=== PATIENT | male | born 1950 | race Caucasian/White ===

== ENCOUNTER → 2018-01-29 14:35 | Outpatient (CLI) | payer MEDICARE, BC, SELFPAY ==
[2018-01-29 16:15] LABS: Prostate Specific Antigen Scrn 1.09 ng/mL (0.1-4.0)
== END ==
PROVIDERS: PCP Family Medicine; Visit Provider Family Medicine
DX: Z12.5 Encounter for screening for malignant neoplasm of prostate (principal)
CPT/HCPCS: 36415; G0103

== ENCOUNTER → 2018-05-15 10:51 | Outpatient (CLI) | payer MEDICARE, BC, SELFPAY ==
[2018-05-15 12:20] LABS: Alanine Aminotransferase 51 IU/L (21-72); Albumin 4.6 g/dL (3.5-5.0); Albumin Globulin Ratio 1.8 (1.0-2.8); Alkaline Phosphatase 82 U/L (38-126); Aspartate Aminotransferase 38 IU/L (17-59); BUN Creatinine Ratio 15.6 (6-22); Bilirubin Total 3.6 mg/dL (0.2-1.3); Blood Urea Nitrogen 14 mg/dL (9-20); Calcium 9.3 mg/dL (8.4-10.2); Carbon Dioxide 33 mmol/L (22-32); Chloride 100 mmol/L (98-107); Estimated Glomerular Filt Rate > 60.0 mL/min (>60); Globulin 2.6 g/dL (1.7-4.1); Glucose 91 mg/dL (80-110); HEMOLYSIS < 15 (0-50); Sodium 143 mmol/L (137-145); Total Protein 7.2 g/dL (6.3-8.2)
[2018-05-20 10:08] LABS: Lipoprofile NMR SEE SEPERATE REPORT
== END ==
PROVIDERS: PCP Family Medicine; Visit Provider Specialist
DX: E78.2 Mixed hyperlipidemia (principal)
CPT/HCPCS: 36415; 80053; 83704

== ENCOUNTER → 2018-12-04 07:30 | Outpatient (CLI) | payer MEDICARE, BC, SELFPAY ==
[2018-12-04 09:25] LABS: Alanine Aminotransferase 48 IU/L (21-72); Albumin 4.4 g/dL (3.5-5.0); Albumin Globulin Ratio 1.9 (1.0-2.8); Alkaline Phosphatase 101 U/L (38-126); Aspartate Aminotransferase 31 IU/L (17-59); BUN Creatinine Ratio 13.3 (6-22); Bilirubin Total 2.9 mg/dL (0.2-1.3); Blood Urea Nitrogen 12 mg/dL (9-20); Calcium 9.4 mg/dL (8.4-10.2); Carbon Dioxide 26 mmol/L (22-32); Chloride 102 mmol/L (98-107); Estimated Glomerular Filt Rate > 60.0 mL/min (>60); Globulin 2.3 g/dL (1.7-4.1); Glucose 85 mg/dL (80-110); HEMOLYSIS < 15 (0-50); Potassium 4.1 mmol/L (3.4-5.1); Sodium 138 mmol/L (137-145); Total Protein 6.7 g/dL (6.3-8.2)
[2018-12-06 14:41] LABS: Lipoprofile NMR SEE SEPARATE REPOERT
== END ==
PROVIDERS: PCP Family Medicine; Visit Provider Specialist
DX: I10 Essential (primary) hypertension (principal); E78.5 Hyperlipidemia, unspecified
CPT/HCPCS: 36415; 80053; 83704

== ENCOUNTER → 2019-02-13 10:01 | Outpatient (CLI) | payer MEDICARE, BC, SELFPAY ==
--- NOTE | 2019-02-13 | DI.US.S_ITS ---
PROCEDURE: US THYROID INDICATIONS: THYROID NODULE TECHNIQUE: Real-time scanning was performed of the thyroid gland, with image documentation. COMPARISON: [facility], US, US CAROTID DOPPLER BI, 02/13/2019, 10:44. Outside Facility, RG, CT SOFT TISSUE NECK WITH CONTRAST, 02/04/2019, 18:27. FINDINGS: Right: Thyroid lobe measures 5.6 x 2.1 x 1.3 cm, and is homogeneous in echotexture. Left: Thyroid lobe measures 5.2 x 1.7 x 1.6 cm, and is homogenous in echotexture. Isthmus: 3.0 mm thick. Nodule number: 1 Location: Right mid Size: 1.3 x 0.8 x 0.6 cm Composition: Polycystic Echogenicity: Anechoic Shape: wider than tall. Margins: Smooth Echogenic foci: Comet tail artifact Total points: 0 ACR TI-RADS category: Benign Nodule number: 2 Location: Right mid lateral Size: 0.8 x 0.5 x 0.4 cm. Composition: Cystic Echogenicity: Anechoic Shape: wider than tall. Margins: Smooth Echogenic foci: Comet tail artifact Total points: 0 ACR TI-RADS category: Benign Nodule number: 3 Location: Right inferior lateral Size: 0.6 x 0.5 x 0.4 cm Composition: Solid Echogenicity: Hypoechoic Shape: wider than tall. Margins: Smooth Echogenic foci: None Total points: 4 ACR TI-RADS category: Moderate Nodule number: 4 Location: Mid isthmus Size: 0.7 x 0.6 x 0.3 cm. Composition: Solid Echogenicity: Hypoechoic Shape: wider than tall. Margins: Smooth Echogenic foci: None Total points: 4 ACR TI-RADS category: Moderately suspicious Nodule number: 5 Location: Left mid isthmus Size: 1.4 x 0.9 x 0.9 cm. Composition: Complex Echogenicity: Mixed echogenicity Shape: wider than tall. Margins: Smooth Echogenic foci: Internal punctate foci. Total points: 6 ACR TI-RADS category: Moderately suspicious IMPRESSION: Bilateral thyroid nodules. Recommend continued followup ultrasound as detailed below. ACR TI-RADS definitions and recommendations: TI-RADS 1 (benign): 0 points. FNA not needed. TI-RADS 2 (not suspicious): 2 points. FNA not needed. TI-RADS 3 (mildly suspicious): 3 points. * FNA if 2.5 cm or larger, follow up if 1.5 cm or larger (at 1, 3, and 5 years). TI-RADS 4 (moderately suspicious): 4-6 points. * FNA if 1.5 cm or larger, follow up if 1 cm or larger (at 1, 2, 3, and 5 years). TI-RADS 5 (highly suspicious): 7 points or more. * FNA if 1 cm or larger, follow up if 0.5 cm or larger (every year for 5 years). Dictated by: Adonis PEACE Interpreted: Marcelle Masterson MD on 02/13/2019 at 14:09 Approved by: Marcelle Masterson M.D. on 02/13/2019 at 14:27
--- NOTE | 2019-02-13 | DI.US.S_ITS ---
PROCEDURE: US CAROTID DOPPLER BI INDICATIONS: PERIPHERAL VASCULAR DISEASE TECHNIQUE: Color and pulse Doppler interrogation was performed of both carotid systems, with image documentation and velocity measurements. COMPARISON: None. FINDINGS: Stenosis calculations are based on SRU (Society of Radiologists in Ultrasound) criteria. Right side: Brachial blood pressure: 133/75 mm Hg. Common carotid artery peak systolic velocity: 85 cm/sec. Internal carotid artery peak systolic velocity: 99 cm/sec. Internal carotid artery end diastolic velocity: 31 cm/sec. External carotid artery peak systolic velocity: 108 cm/sec. ICA/CCA peak systolic ratio: 1.2. Paiz scale imaging description: Heavy scattered plaque. Percent internal carotid artery stenosis: Less than 50%. Vertebral artery: Flow direction is antegrade. Left side: Brachial blood pressure: 131/74 mm Hg. Common carotid artery peak systolic velocity: 120 cm/sec. Internal carotid artery peak systolic velocity: 100 cm/sec. Internal carotid artery end diastolic velocity: 41 cm/sec. External carotid artery peak systolic velocity: 83 cm/sec. ICA/CCA peak systolic ratio: 1.2. Paiz scale imaging description: Heavy scattered plaque. Percent internal carotid artery stenosis: Less than 50%. Vertebral artery: Flow direction is antegrade. IMPRESSION: Less than 50% bilateral internal carotid artery stenosis. Dictated by: Adonis Smith [facility] Interpreted: Marcelle Masterson MD on 02/13/2019 at 14:16 Approved by: Marcelle Masterson M.D. on 02/13/2019 at 14:27
== END ==
PROVIDERS: PCP Family Medicine; Visit Provider Family Medicine
DX: E04.2 Nontoxic multinodular goiter (principal); I65.23 Occlusion and stenosis of bilateral carotid arteries; I73.9 Peripheral vascular disease, unspecified
CPT/HCPCS: 76536; 93880

== ENCOUNTER → 2019-02-17 09:40 | Outpatient (CLI) | payer MEDICARE, BC, SELFPAY ==
--- NOTE | 2019-02-17 09:42 | DI.RAD.S_ITS ---
PROCEDURE: FL BARIUM SWALLOW INDICATIONS: occasional reflux. Laryngospasm episode COMPARISON: None. FINDINGS: Function: There is normal esophageal peristalsis. No elicited gastroesophageal reflux. Morphology: Air-contrast images demonstrate normal mucosal morphology. Single contrast views show no esophageal strictures, extrinsic mass effects, or diverticula. Limited images of the stomach demonstrate normal appearance. IMPRESSION: Normal motility through the esophagus, no evidence of reflux or aspiration. The esophagogastric junction appears competent and normal in morphology. Dictated by: Manuel Peguero M.D. on 02/17/2019 at 11:51 Approved by: Manuel Peguero M.D. on 02/17/2019 at 11:51
== END ==
PROVIDERS: PCP Family Medicine; Visit Provider Specialist
DX: R13.10 Dysphagia, unspecified (principal)
CPT/HCPCS: 74220

== ENCOUNTER 2020-03-27 19:17 | Observation (INO) | payer MEDICARE, OTHER, SELFPAY ==
[2020-03-27] VITALS (7 sets, daily range): BP systolic 149–190; BP diastolic 72–84; PULSE 51–74; RESP 12–23; TEMP 36.1–36.2; O2SAT 93–100; BMI 22.4
--- NOTE | 2020-03-27 19:45 | DI.CT.S_ITS ---
PROCEDURE: CT HEAD/BRAIN WO CON INDICATIONS: stroke symptoms, dizzy only. NOT TPA CANDIDATE TECHNIQUE: Noncontrast 4.5 mm thick angled axial sections acquired from the foramen magnum to the vertex, with coronal and sagittal reformats. For radiation dose reduction, the following was used: automated exposure control, adjustment of mA and/or kV according to patient size. COMPARISON: None. FINDINGS: Image quality: Excellent. CSF spaces: Basal cisterns are patent. No extra-axial fluid collections. The ventricles are symmetric in size and shape. Brain: No intracranial bleeds or masses. There is cerebral volume loss for age, with resultant ventricular and sulcal prominence. There are periventricular and deep white matter chronic small vessel ischemic changes. There is intracranial internal carotid artery atherosclerosis. Skull and face: Calvarium and visualized facial bones appear intact, without suspicious lesions. Sinuses: Visualized sinuses and mastoids are clear. IMPRESSION: No acute intracranial process. Dictated by: Lloyd Syed M.D. on 03/27/2020 at 20:31 Approved by: Lloyd Syed M.D. on 03/27/2020 at 20:33
--- NOTE | 2020-03-27 19:46 | DI.CT.S_ITS ---
PROCEDURE: CT ANGIO HEAD AND NECK INDICATIONS: stroke symptoms TECHNIQUE: Pre-contrast 4.5 mm thick sections acquired from the foramen magnum to the vertex. After the administration of intravenous contrast, 1 mm thick sections acquired from the aortic arch through the [place] of [place]. Post-contrast 4.5 mm thick sections then re-acquired from the foramen magnum to the vertex. 3-dimensional oiuloxf-qrjpgdgyn-amwmdqosbs (MIP) and/or volume rendering reformats were acquired of the central intracranial vasculature and neck separately. COMPARISON: None. FINDINGS: Image quality: Excellent. BRAIN: CSF spaces: Ventricles are normal in size and shape. Basal cisterns are patent. No extra-axial fluid collections. Brain: No midline shift. No intracranial bleeds or masses. Paiz-white matter interface appears intact. Skull and face: Calvarium and facial bones appear intact, without suspicious lesions. Orbits appear normal. Sinuses: Sinuses and mastoids are clear. HEAD CT ANGIOGRAPHY: Anterior circulation: Intracranial internal carotid arteries are normal in size and flow. The flow within the paired anterior cerebral arteries is normal and symmetric. The flow within the middle cerebral arteries is normal and symmetric. The anterior communicating artery is seen. No aneurysms are seen. Posterior circulation: Visualized portions of the vertebral arteries demonstrate normal caliber, and join to form a normal appearing basilar artery. Flow within the posterior cerebral arteries is normal and symmetric. No aneurysms are seen. NECK CT ANGIOGRAPHY: Carotid system: The great vessels demonstrate a conventional anatomy as they arise from the aortic arch. The origins of the common carotid arteries appear patent. The common carotid arteries demonstrate normal caliber and courses. No right ICA stenosis. There is 50% focal stenosis at the proximal left ICA. Bilateral carotid atherosclerosis. Posterior circulation: The origins of the vertebral arteries both appear widely patent. The more superior extracranial portions of both vertebral arteries also demonstrate normal courses and calibers. They join to form a normal appearing basilar artery. Soft tissues: Visualized neck soft tissues demonstrate no suspicious abnormalities. Cervical spondylosis and facet arthropathy.. IMPRESSION: No intracranial focal stenosis or occlusion 50% focal stenosis involving the proximal left ICA. No hemodynamically significant right ICA stenosis. Any quantitative measurements of stenosis were performed using NASCET criteria. Dictated by: Lloyd Syed M.D. on 03/27/2020 at 20:33 Approved by: Lloyd Syed M.D. on 03/27/2020 at 20:39
[2020-03-27 19:58] LABS: Add Manual Diff / Slide Review NO; Basophils Absolute Auto 0 /uL (0-100); Basophils Percent Auto 0.2 % (0-2); Eosinophils Absolute Auto 100 /uL (0-450); Eosinophils Percent Auto 0.7 % (2-4); Hematocrit 45.4 % (41-53); Hemoglobin 15.8 g/dL (13.5-17.5); Lymphocytes Absolute Auto 1400 /uL (1100-4500); Lymphocytes Percent Auto 13.5 % (25-40); Mean Corpuscular HGB Conc 34.8 % (30-36); Mean Corpuscular Hemoglobin 32.4 PG (26-34); Mean Corpuscular Volume 93.3 fL (80-100); Monocytes Absolute Auto 800 /uL (0-900); Monocytes Percent Auto 7.6 % (3-14); Neutrophils Absolute Auto 7800 /uL (1500-7000); Platelet Count 233 X10^3/uL (150-400); Red Blood Cell Count 4.86 X10^6/uL (4.5-5.9); Red Cell Distribution Width 13.2 % (11.6-14.8); White Blood Cell Count 10.1 X10^3/uL (4.5-11.0)
--- NOTE | 2020-03-27 20:01 | ED.NEUROSD ---
HPI - Neuro Symptoms/Deficit General Chief Complaint: Neuro Symptoms/Deficit Stated Complaint: Vertigo/Dizzy/Leg Weakness/High BP Time Seen by Provider: 03/27/20 19:25 Source: patient Mode of arrival: Wheelchair Limitations: no limitations History of Present Illness HPI Narrative: 70-year-old male nonsmoker with history of hyperlipidemia and borderline hypertension presents with his in the chief complaint of 2 episodes now vague dizziness in the absence of provocation or palliation. He states that about 10:00 a.m. this morning (and lasting for 1 hour) he felt unsteady and dizzy. He denies any recent injury, headaches or fever. He denies focal neurologic findings such as blurred vision, trouble speech nor numbness, tingling or weakness of extremities. He denies any chest pain or shortness of breath. He had a recurrence, this time a bit more severe of dizziness in the absence of other symptoms that started tonight at about 5:00 p.m.. His symptoms have largely resolved prior to his arrival. Onset (ago): hour(s) Timing confirmed by: spouse Location: ataxia History of same: No Severity: moderate Quality: improving Relieving factors: none Exacerbating factors: none On Anticoagulants: Yes (81 mg daily) Associated symptoms: vertigo Treatments Prior to Arrival: none Related Data Home Medications Medication Instructions Recorded Confirmed ASPIRIN (#ASPIRIN LOW STRENGTH 81 mg PO Q DAY #0 10/19/11 03/27/20 ADULT) atorvastatin 20 mg tablet 40 mg PO DAILY 03/05/18 03/27/20 Allergies Allergy/AdvReac Type Severity Reaction Status Date / Time Penicillins [PENICILLINS] Allergy Unknown Verified 03/27/20 19:28 Review of Systems Constitutional Constitutional: Denies chills, Denies fatigue, Denies fever(s), Denies frequent falls, Denies lethargy and Denies weakness Eyes Eyes: Denies change in vision, Denies eye discharge, Denies irritation and Denies loss of vision ENT Ears, Nose, Mouth, and Throat: Denies change in voice, Reports dizziness, Denies neck pain, Denies sore throat and Denies throat swelling Cardiovascular Cardiovascular: Denies chest pain, Denies irregular heart rhythm, Denies lightheadedness, Denies palpitations, Denies dyspnea, Denies dyspnea on exertion and Denies orthopnea Respiratory Respiratory: Denies cough, Denies dyspnea, Denies dyspnea on exertion and Denies wheezing Gastrointestinal Gastrointestinal: Denies abdominal pain, Denies change in bowel habits, Denies diarrhea, Denies nausea and Denies vomiting Musculoskeletal Musculoskeletal: Denies neck pain and Denies numbness Integumentary/Breasts Skin/Breast: Denies pruritus, Denies erythema, Denies rash and Denies wounds Neurologic Neurologic: Denies behavioral changes, Denies confusion, Reports dizziness, Denies frequent falls, Denies loss of vision, Denies numbness and Denies weakness Psychiatric Psychiatric: Denies anxiety, Denies behavioral changes, Denies confusion, Denies depression, Denies homicidal ideation and Denies suicidal ideation Endocrine Endocrine: Denies fatigue, Denies flushing and Denies palpitations Hematologic/Lymphatic Hematologic/Lymphatic: Denies easy bruising Allergic/Immunologic Allergic/Immunologic: Denies urticaria, Denies throat swelling and Denies wheezing Patient History Medical History Chickenpox (Resolved 1957) Colon polyps (Resolved 2011) Essential tremor (Chronic 11/13/16) Hyperlipemia (Chronic Unknown) Hypertension (Chronic Unknown) Measles (Resolved 1957) Mumps (Resolved 1957) Shoulder pain (Resolved 2012) Surgical History History of tonsillectomy (Chronic) Family History Father No problems noted. Mother No problems noted. Social History household members: spouse Smoking Status: Never smoker alcohol intake: current substance use type: does not use Smoking Status: Never smoker alcohol intake frequency: 0-2 drinks per day Substance Use Type: does not use Exam Narrative Exam Narrative: GENERAL: [70] year old patient appears stated age. Well-nourished, well-developed patient, in mild distress. HEAD: Atraumatic. Normocephalic. EYES: Pupils equal round and reactive. Extraocular motions intact. No scleral icterus. No injection or drainage. ENT: Nose without bleeding, purulent drainage. Throat without erythema, tonsillar hypertrophy or exudate. Airway patent. NECK: Trachea midline. Non tender CARDIOVASCULAR: Regular rate and rhythm without murmurs, gallops, or rubs. RESPIRATORY: Clear to auscultation. Breath sounds equal bilaterally. No wheezes, rales, or rhonchi. GASTROINTESTINAL: Abdomen soft, non-tender, nondistended. EXTREMITIES: No edema or joint tenderness. BACK: Nontender without deformity or crepitance. No flank tenderness. NEURO: AOx3. SKIN: No rash or erythema of visible areas Initial Vital Signs Initial Vital Signs: Vital Signs Temperature 97.1 F L 03/27/20 19:24 Pulse Rate 60 03/27/20 19:24 Respiratory Rate 14 03/27/20 19:24 Blood Pressure 190/84 H 03/27/20 19:24 Pulse Oximetry 98 03/27/20 19:24 Scores NIH Stroke Scale Level of Conciousness: Alert, keenly responsive Ask month/age: Answers both questions correctly. Open/close eyes, close hand: Performs both tasks correctly Best gaze horizontal: Normal Visual owens: No visual loss Facial palsy: Normal symetrical movement Left arm drift: No drift for full 10 sec Right arm drift: No drift for full 10 sec Left leg drift: No drift for full 10 sec Right leg drift: No drift for full 10 sec Limb ataxia: Absent Sensory on face/arms/legs: Normal, no sensory loss Best language: No aphasia, normal Dysarthria: Normal Extinction or inattention: No abnormality Total NIH Stroke scale score: 0 Course Orders Ordered: ED Orders 03/27/20 19:45 CT head/brain wo con Stat 03/27/20 19:46 CT angio head and neck Stat 03/27/20 19:47 Basic Metabolic Panel Stat Complete Blood Count AUTO DIFF Stat Partial Thromboplastin Time Stat Prothrombin Time INR Stat Troponin & CK Cardiac Panel Stat 03/27/20 20:00 EKG-12 Lead Stat 03/27/20 20:32 UA Complete [Urinalysis and Microscopic] Stat Urine Drug Screen, Rapid Stat Aspirin (Aspirin Ec) 81 mg PO DAILY TI Sodium Chloride (Normal Saline 0.9%) 1,000 mls @ 150 mls/hr IV CONT TI Last Infusion: 03/27/20 22:10 Dose: 150 mls/hr Documented by: Infusion: 03/27/20 22:02 Dose: 0 mls/hr Documented by: Admin: 03/27/20 20:29 Dose: 150 mls/hr Documented by: MARIBEL Discontinued Medications Aspirin (Aspirin Chew) 324 mg PO NOW ONE Stop: 03/27/20 20:51 Last Admin: 03/27/20 21:08 Dose: 324 mg Documented by: MARIBEL Consultations Consultation #1: PCP is Dr. Schwartz, initial call to Dr. 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 Phillips happy to accept Vital Signs Vital signs: Vital Signs - 8 hr 03/27/20 19:24 03/27/20 20:00 03/27/20 20:20 Temperature 97.1 F L Pulse Rate 60 51 L 74 Respiratory Rate 14 12 21 Blood Pressure 190/84 H 154/72 H Pulse Oximetry 98 100 93 03/27/20 20:30 03/27/20 21:00 03/27/20 21:30 Temperature Pulse Rate 58 L 53 L 56 L Respiratory Rate 18 17 23 Blood Pressure Pulse Oximetry 100 100 100 MDM - Neuro Symptoms/Deficit Lab Data Result diagrams: 03/27/20 19:47 03/27/20 19:47 Labs: Lab Results 03/27/20 03/27/20 03/27/20 Range/Units 19:47 19:47 19:47 WBC 10.1 (4.5-11.0) X10^3/uL RBC 4.86 (4.5-5.9) X10^6/uL Hgb 15.8 (13.5-17.5) g/dL Hct 45.4 (41-53) % MCV 93.3 (80-100) fL MCH 32.4 (26-34) PG MCHC 34.8 (30-36) % RDW 13.2 (11.6-14.8) % Plt Count 233 (150-400) X10^3/uL Neut % (Auto) 78.0 H (50-75) % Lymph % (Auto) 13.5 L (25-40) % [place] % (Auto) 7.6 (3-14) % Eos % (Auto) 0.7 L (2-4) % Baso % (Auto) 0.2 (0-2) % Neut # (Auto) 7800 H (4233-7057) /uL Lymph # (Auto) 1400 (4774-6847) /uL [place] # (Auto) 800 (0-900) /uL Eos # (Auto) 100 (0-450) /uL Baso # (Auto) 0 (0-100) /uL PT 12.6 (10.1-12.7) SECONDS INR 1.1 (0.9-1.3) APTT 31 (26.4-36.2) SECONDS Sodium 138 (137-145) mmol/L Potassium 4.2 (3.4-5.1) mmol/L Chloride 103 (98-107) mmol/L Carbon Dioxide 31 (22-32) mmol/L BUN 16 (9-20) mg/dL Creatinine 0.95 (0.66-1.25) mg/dL Estimated GFR > 60.0 (>60) mL/min BUN/Creatinine Ratio 16.8 (6-22) Glucose 106 (80-110) mg/dL Calcium 9.7 (8.4-10.2) mg/dL Total Creatine Kinase 88 (55-170) U/L CK-MB (CK-2) TNP CK-MB (CK-2) Rel Index TNP Troponin I < 0.012 (0.01-0.034) ng/mL Urine Color Urine Appearance Urine pH (4.5-8.0) Ur Specific [place] (1.000-1.035) Urine Protein (Negative) Urine Glucose (UA) (Negative) g/dL Urine Ketones (NEGATIVE) Urine Occult Blood (Negative) Urine Nitrate (Negative) Urine Bilirubin (NEGATIVE) Urine Urobilinogen (0.2) E.U./dL Ur Leukocyte Esterase (NEGATIVE) Urine RBC (0-5/HPF) Urine WBC (0-5/HPF) Urine Bacteria (None) Ur Culture Indicated? Micro UA Comment U Opiates 300ng/mL cut (Negative) Ur Oxycodone Screen (Negative) Urine Methadone Screen (Negative) Ur Barbiturates Screen (Negative) U Tricyclic Antidepress (Negative) Ur Phencyclidine Scrn (Negative) Ur Amphetamines Screen (Negative) U Methamphetamines Scrn (Negative) Ur MDMA Scrn (Ecstasy) (Negative) U Benzodiazepines Scrn (Negative) Urine Cocaine Screen (Negative) U Marijuana (THC) Screen (Negative) 03/27/20 03/27/20 Range/Units 20:32 20:32 WBC (4.5-11.0) X10^3/uL RBC (4.5-5.9) X10^6/uL Hgb (13.5-17.5) g/dL Hct (41-53) % MCV (80-100) fL MCH (26-34) PG MCHC (30-36) % RDW (11.6-14.8) % Plt Count (150-400) X10^3/uL Neut % (Auto) (50-75) % Lymph % (Auto) (25-40) % [place] % (Auto) (3-14) % Eos % (Auto) (2-4) % Baso % (Auto) (0-2) % Neut # (Auto) (9444-0449) /uL Lymph # (Auto) (1834-1533) /uL [place] # (Auto) (0-900) /uL Eos # (Auto) (0-450) /uL Baso # (Auto) (0-100) /uL PT (10.1-12.7) SECONDS INR (0.9-1.3) APTT (26.4-36.2) SECONDS Sodium (137-145) mmol/L Potassium (3.4-5.1) mmol/L Chloride (98-107) mmol/L Carbon Dioxide (22-32) mmol/L BUN (9-20) mg/dL Creatinine (0.66-1.25) mg/dL Estimated GFR (>60) mL/min BUN/Creatinine Ratio (6-22) Glucose (80-110) mg/dL Calcium (8.4-10.2) mg/dL Total Creatine Kinase (55-170) U/L CK-MB (CK-2) CK-MB (CK-2) Rel Index Troponin I (0.01-0.034) ng/mL Urine Color Yellow Urine Appearance Clear Urine pH 7.5 (4.5-8.0) Ur Specific [place] 1.010 (1.000-1.035) Urine Protein Negative (Negative) Urine Glucose (UA) Negative (Negative) g/dL Urine Ketones Negative (NEGATIVE) Urine Occult Blood Negative (Negative) Urine Nitrate Negative (Negative) Urine Bilirubin Negative (NEGATIVE) Urine Urobilinogen 0.2 (0.2) E.U./dL Ur Leukocyte Esterase Negative (NEGATIVE) Urine RBC None seen (0-5/HPF) Urine WBC None seen (0-5/HPF) Urine Bacteria None seen (None) Ur Culture Indicated? Cult not indicated Micro UA Comment Microscopic normal U Opiates 300ng/mL cut Negative (Negative) Ur Oxycodone Screen Negative (Negative) Urine Methadone Screen Negative (Negative) Ur Barbiturates Screen Negative (Negative) U Tricyclic Antidepress Negative (Negative) Ur Phencyclidine Scrn Negative (Negative) Ur Amphetamines Screen Negative (Negative) U Methamphetamines Scrn Negative (Negative) Ur MDMA Scrn (Ecstasy) Negative (Negative) U Benzodiazepines Scrn Negative (Negative) Urine Cocaine Screen Negative (Negative) U Marijuana (THC) Screen Negative (Negative) Point of Care Testing Glucose POC 106 Imaging Data CTA Head/Neck: Attestation: I personally reviewed and interpreted this imaging study as follows: My Impression: Sinus bradycardia with rate 52. First-degree block, P are 235. No signs of ischemia such as ST elevation, depression or T-wave abnormality. MDM Narrative Medical decision making narrative: 70M with multiple risk factors and nonspecific, non provocable dizziness. No nystagmus. No injury. No recent URI, allergies, sinus pressure/drainage. Normal CT head. Some evidence of carotid narrowing on CTA. Patient needs hospitalization for further evaluation of neurologic symptoms which could represent posterior circulation stroke Stroke Core Measures Exclusion Criteria TPA in CVA: Symptom Onset >3 or 4.5 Hours Discharge Plan Departure Patient Disposition: Admitted as Observation Clinical Impression: Transient cerebral ischemia Qualifiers: Transient cerebral ischemia type: unspecified Qualified Code(s): G45.9 - Transient cerebral ischemic attack, unspecified Discharge Date/Time: 03/27/20 22:00 Admit Date/Time: 03/27/20 21:35 Admit Provider: Jm Phillips
[2020-03-27 20:04] LABS: INR 1.1 (0.9-1.3); Prothrombin Time 12.6 SECONDS (10.1-12.7)
[2020-03-27 20:07] LABS: BUN Creatinine Ratio 16.8 (6-22); Blood Urea Nitrogen 16 mg/dL (9-20); Calcium 9.7 mg/dL (8.4-10.2); Carbon Dioxide 31 mmol/L (22-32); Chloride 103 mmol/L (98-107); Creatine Kinase 88 U/L (55-170); Estimated Glomerular Filt Rate > 60.0 mL/min (>60); Glucose 106 mg/dL (80-110); HEMOLYSIS < 15 (0-50); PTT Partial Thromboplastin Tim 31 SECONDS (26.4-36.2); Potassium 4.2 mmol/L (3.4-5.1); Sodium 138 mmol/L (137-145)
[2020-03-27 20:19] LABS: Troponin I < 0.012 ng/mL (0.01-0.034)
[2020-03-27] MEDS: SODIUM CHLORIDE 0.9% 1,000 ML 150 ML IV (20:29)
[2020-03-27 20:38] LABS: Bacteria Urine None Seen; RBC Urine None Seen (0-5/HPF); WBC Urine None Seen (0-5/HPF)
[2020-03-27 20:40] LABS: Appearance Urine UA CLEAR; Bilirubin Urine UA NEGATIVE (NEGATIVE); Color Urine UA YELLOW; Glucose Urine UA NEGATIVE (Negative); Ketones Urine UA NEGATIVE (NEGATIVE); Leukocyte Esterase Urine UA NEGATIVE (NEGATIVE); Nitrite Urine UA NEGATIVE (Negative); Occult Blood Urine UA NEGATIVE (Negative); Protein Urine UA NEGATIVE (Negative); Urobilinogen Urine UA 0.2 E.U./dL (0.2); pH Urine UA 7.5 (4.5-8.0)
[2020-03-27 20:49] LABS: Culture Indicated Urine Cult Not Indicated; Urine Comments Microscopic Normal
[2020-03-27] MEDS: ASPIRIN 81 MG CHEW TAB 324 MG PO (21:08)
[2020-03-27 21:16] LABS: Ur Creatinine 50 (Normal)
[2020-03-27 21:17] LABS: UR Morphine/Opiate cutoff 300 Negative (Negative); Ur Specific Gravity 1.015 (Normal); Urine Amphetamines Negative (Negative); Urine Barbiturates Negative (Negative); Urine Benzodiazepines Negative (Negative); Urine Cocaine Negative (Negative); Urine MDMA Negative (Negative); Urine Methadone Negative (Negative); Urine Methamphetamines Negative (Negative); Urine Oxycodone Negative (Negative); Urine Phencyclidine Negative (Negative); Urine Tetrahydrocannabinol Negative (Negative); Urine Tricyclic Antidepressant Negative (Negative); Urine pH 5 (Normal)
--- NOTE | 2020-03-27 22:16 | DI.MRI.S_ITS ---
PROCEDURE: MR STROKE Pre- and post-contrast brain MRI, non-contrast brain MR angiogram, pre- and postcontrast neck MR angiogram INDICATIONS: dizziness, concern for possible posterior CVA TECHNIQUE: Brain: Noncontrast axial T1 spin echo, axial T2 fast spin echo, sagittal and axial FLAIR, coronal T2 fast spin echo, axial gradient echo, axial diffusion and ADC through the brain. After the administration of contrast, axial 3D VIBE of the cranial vasculature and brain. Brain MRA: Non-contrast 3-D time of flight MR angiogram, with multiple luvqrrs-qlwtvcslv-gkzlgmzelu (MIP) reformats performed. Neck MRA: Axial and sagittal TruFISP through the neck. Coronal dynamic MR angiogram during administration of contrast in the arterial and venous phases, with 3-dimenstional wcdlfar-zyfmfmizd-ornlismale (MIP) reformats constructed from subtraction images. COMPARISON: [facility], CT, CT ANGIO HEAD AND NECK, 03/27/2020, 19:52. [facility], CT, CT HEAD/BRAIN WO CON, 03/27/2020, 19:52. FINDINGS: Image quality: Excellent. BRAIN: CSF spaces: Ventricles are normal in size and shape. Basal cisterns are patent. No extra-axial fluid collections. Brain: No intracranial bleeds or mass effects. Paiz-white matter interface is normal. Diffusion weighted images show no acute ischemic insults. Brainstem appears normal. Brain parenchymal volume loss is seen. Chronic small vessel ischemic change can be seen. Normal intravascular flow voids are present. No abnormal intracranial enhancement. Skull and face: Calvarial marrow signal is normal. Orbits appear normal. Sinuses: There is a mucous retention cyst seen within the inferior left maxillary sinus. Minimal mucosal thickening is seen within paranasal sinuses. No abnormal fluid is seen within the mastoid air cells. BRAIN MR ANGIOGRAM: Anterior circulation: Intracranial internal carotid arteries are normal in size and enhancement. The flow within the paired anterior cerebral arteries is normal and symmetric. There is 50% narrowing seen involving proximal M1 segment. The flow within the middle cerebral arteries is otherwise normal and symmetric. The anterior communicating artery is seen on the right side. There is accessory anterior cerebral artery emanating from the anterior communicating artery. No stenoses, occlusions, or aneurysms. Posterior circulation: The visualized portions of the vertebral arteries demonstrate normal caliber, and join to form a normal appearing basilar artery. The flow within the posterior cerebral arteries is normal and symmetric. No stenoses, occlusions, or aneurysms. NECK MR ANGIOGRAM: Carotids: Great vessels demonstrate a conventional anatomy as they arise from the aortic arch. The origins of the common carotid arteries appear patent. The calibers and courses of both common carotid arteries are normal. The bifurcation regions demonstrate atherosclerotic irregularity. There is a focal narrowing (approximately 60%) involving the left proximal internal carotid artery. No hemodynamically significant stenosis is seen involving left internal carotid artery. Posterior circulation: The origins of the vertebral arteries appear patent. More superior portions of both vertebral arteries demonstrate normal course and caliber, and join to form a normal appearing basilar artery. Miscellaneous: Subclavian arteries appear patent. Pre-contrast images through the neck show no soft tissue abnormalities. IMPRESSION: BRAIN MRI: No findings of acute or subacute infarction can be seen. Note is made of age-appropriate brain parenchymal volume loss and chronic small vessel ischemic changes. BRAIN MR ANGIOGRAM: Focal 50% narrowing seen involving the proximal right M1 segment. Developmental anomaly, with an accessory anterior cerebral artery branch this emanating from the right aspect of the anterior communicating artery. NECK MR ANGIOGRAM: Focal stenosis (approximately 60%) involving the left proximal internal carotid artery. Dictated by: Joaquim Gray M.D. on 03/28/2020 at 8:00 Approved by: Joaquim Gray M.D. on 03/28/2020 at 8:07
--- NOTE | 2020-03-27 23:02 | PC.NURSE ---
admit pt to AC from ER approx 2215. A&O. VSS. pt states had multiple episodes of dizziness today that would subside and then return. currently sitting in bed and states that white board, located across the room appears to be moving. Denies difficulties with with vision earlier today. NS infusing @ 150cc/hr without difficulty as started in ER. Tele monitor on. Covid swab sent. Pt oriented to room and plan of care. Instructed to use call light prior to activity and for any needs.
[2020-03-27 23:53] LABS: COVID19 -Nasal RAPID Negative (Negative)
[2020-03-28 00:16] VITALS: BP 141/77; PULSE 62; RESP 16; TEMP 36.3; O2SAT 99
[2020-03-28 03:35] VITALS: BP 124/66; PULSE 56; RESP 16; TEMP 36.2; O2SAT 97
[2020-03-28] MEDS: SODIUM CHLORIDE 0.9% 1,000 ML 150 ML IV (03:55)
--- NOTE | 2020-03-28 06:00 | DI.ECHO.S_ITS ---
[facility]---------+ [facility] +---------+ : : [address] [place] : : : : [id number] : : : : Phone: [phone]+ Echocardiogram Report + + :Name: PAKO LINTON Study Date: 03/28/2020 Height: 74 in : :[facility] Weight: 175 lb : : Gender: Male BSA: 2.1 m2 : :: 1950 Age: 70 yrs BP: 129/70 mmHg: :Reason For Study: STROKE EVALUATION : : Performed By: Aba Russell : :Referring: MARIAN LUTZ : + + Interpretation Summary The study quality was technically excellent. The left ventricle is normal in size and wall thickness. The left ventricular ejection fraction is normal. There are no focal wall motion abnormalities. Diastolic parameters suggest probable normal left ventricular diastolic function and normal filling pressures. The right ventricle is normal in size and function. Both atria are normal in size. There is no Doppler evidence for an atrial septal defect. Procedure: A two-dimensional transthoracic echocardiogram with color flow and Doppler was performed. There is no prior echocardiogram noted for this patient. The study quality was technically excellent. The patient was in normal sinus rhythm during the exam. Left Ventricle: The left ventricle is normal in size and wall thickness. The ejection fraction is estimated to be 60-65%. The left ventricular ejection fraction is normal. There are no focal wall motion abnormalities. Diastolic parameters suggest probable normal left ventricular diastolic function and normal filling pressures. Right Ventricle: The right ventricle is normal in size and function. Atria: Both atria are normal in size. There is no Doppler evidence for an atrial septal defect. Mitral Valve: The mitral valve is normal in structure and function. There is trace mitral regurgitation. Aortic Valve: The aortic valve is trileaflet. The aortic valve is slightly calcified. The aortic valve opens well. There is trace aortic regurgitation. Tricuspid Valve: The tricuspid valve is normal in structure and function. No tricuspid regurgitation. Pulmonary artery pressures cannot be estimated because of the lack of a measurable TR jet velocity. Pulmonic Valve: The pulmonic valve leaflets are thin and pliable; valve motion is normal. There is no pulmonic valvular regurgitation. Great Vessels: The aortic root is normal size. The dimensions of the ascending aorta are normal. The pulmonary artery is normal size. The IVC is of normal diameter and collapses greater than 50% with a sniff. This suggests a low right atrial pressure of 3 mm Hg. Pericardium/ Pleura There is no pericardial effusion. There is no pleural effusion. MMode/2D Measurements & Calculations LVIDd: 4.8 cm LVOT diam: 2.1 cm LVIDs: 3.0 cm Ao root diam: 3.1 cm FS: 37.5 % asc Aorta Diam: 3.0 cm EPSS: 0.25 cm IVSd: 0.89 cm LVPWd: 0.84 cm LV dinero. diameter/BSA (cm/m^2): 2.3 LV sys. diameter/BSA (cm/m^2): 1.5 LA dimension: 3.2 cm RA long axis: 4.4 cm LA A2 area: 20.7 cm2 RA area: 16.4 cm2 LA A4 area: 20.3 cm2 RA vol: 52.1 ml LA length (vol): 5.5 cm RA : 25.4 ml/m2 LA vol: 65.1 ml IVC diam: 2.1 cm LA vol index: 31.7 ml/m2 RVD1 (basal): 4.5 cm RVD2 (mid): 4.2 cm TAPSE: 2.3 cm Doppler Measurements & Calculations Ao V2 max: 119.6 cm/sec LVOT Max Nick: 99.1 cm/sec Ao V2 mean: 88.1 cm/sec LV V1 max P.9 mmHg Ao max P.7 mmHg LV V1 VTI: 23.2 cm Ao mean P.3 mmHg IRA(I,D): 2.7 cm2 Ao V2 VTI: 29.2 cm IRA(V,D): 2.8 cm2 sev ratio: 0.80 IRA indexed to BSA (cm^2/m^2): 1.3 MV E max nick: 89.5 cm/sec PA V2 max: 81.9 cm/sec MV A max nick: 81.0 cm/sec PA V2 mean: 61.7 cm/sec MV E/A: 1.1 PA mean P.7 mmHg Med Peak E' Nick: 7.6 cm/sec PA pr(Accel): 7.1 mmHg E/E' med: 11.8 Lat Peak E' Nick: 7.1 cm/sec E/E' lat: 12.7 E/e' average: 12.2 MV dec time: 0.23 sec SV(LVOT): 78.6 ml Electronically signed by: Abraham Lopez M.D. on Reading Physician:03/28/2020 02:16 PM
--- NOTE | 2020-03-28 06:12 | PC.NURSE ---
Denies any dizziness this morning, no C/O pain or discomfort all shift. States I feel good this morning. Will cont. POC & monitor.
[2020-03-28] MEDS: SODIUM CHLORIDE 0.9% FLUSH 10 ML IV ×2 (06:25→09:15)
--- NOTE | 2020-03-28 06:56 | P.HP_ITS ---
History of Present Illness History of Present Illness Date Patient Seen: 03/28/20 Time Patient Seen: 06:19 Chief complaint: Vertigo/Dizzy/Leg Weakness/High BP Narrative: 70-year-old male who is quite active with a history of hyperlipidemia and borderline high blood pressure comes in with 2 episodes of dizziness yesterday. He has never had problems with dizziness lightheadedness he does have on occasion but not consistent. He describes the dizziness more is a vertigo symptoms like he is on a boat his balance was off. His 1st episode was yesterday morning it lasted for about an hour. Bud like his balance was out of alignment. He did have any weakness in his hands or feet difficulty with speech no headaches. It resolved. Patient when out to his work. Spent morning there and then had another episode not quite as severe. He just did not feel right he felt off balance he felt a little bit nauseated this lasted for about an hour so. Checked his blood pressure which was high his who is has similar concerns recommended he come to the emergency department for evaluation. In the emergency department patient still had a little bit of dizziness somewhat stat stomach little nausea feeling still off balance. His NIH stroke scale was 0. His blood pressure was quite elevated 180s to 190 systolic his pulse was low. His EKG was unrevealing other than bradycardia. He had a CT showing no acute bleeds or masses. And CTangiogram which mild carotid artery disease less than 50% stenosis. No acute ischemia. His NIH Stroke Scale remained less than 1. Consultation with the this stroke specialist recommended further evaluation workup. On my exam this morning patient states he is doing well he is back to his normal health. Had little nausea last night a little dizziness with walking last night but that is now all resolved. His front desk monitor has been unrevealing other than bradycardia. He has no new neurological symptoms or worsening of his neurological symptoms. His past history includes hyperlipidemia borderline high blood pressure he takes a baby aspirin a day. He exercises 3-4 days a week Patient History Medical History Chickenpox (Resolved 1957) Colon polyps (Resolved 2011) Essential tremor (Chronic 11/13/16) Hyperlipemia (Chronic Unknown) Hypertension (Chronic Unknown) Measles (Resolved 1957) Mumps (Resolved 1957) Shoulder pain (Resolved 2012) Surgical History History of tonsillectomy (Chronic) Family & Social History Family History Father No problems noted. Mother No problems noted. Social History: household members spouse Prior Living Arrangements House Safety & Behavioral: Feels Safe in Current Yes Environment Been Physically Hurt or No Threatened By a Person Suicidal Ideation Description None Suicide Plan Description No Plan Tobacco & Substance use: Smoking Status Never smoker alcohol intake current alcohol intake frequency 3 or more drinks per day Substance Use Type does not use Meds Home Medications and Allergies Home Medications Medication Instructions Recorded Confirmed Type ASPIRIN (#ASPIRIN LOW STRENGTH 81 mg PO Q DAY #0 10/19/11 03/27/20 History ADULT) atorvastatin 20 mg tablet 40 mg PO DAILY 03/05/18 03/27/20 History Allergies Allergy/AdvReac Type Severity Reaction Status Date / Time Penicillins [PENICILLINS] Allergy Unknown Verified 03/27/20 19:28 Exam Vital Signs (past 8 hours): - 03/28/20 00:16 03/28/20 03:35 Temperature 97.3 F L 97.1 F L Pulse Rate 62 56 L Respiratory Rate 16 16 Blood Pressure 141/77 H 124/66 Pulse Oximetry 99 97 Oxygen Delivery Method Room Air Oxygen Flow Rate 0 Narrative Exam Narrative: Gen.: Alert no apparent distress. HEENT: NCAT PERRLA normal red reflex tympanic membranes are without edema nares show no congestion mucosa is moist. Neck is supple no thyroid masses or lymphadenopathy. Cardio: S1-S2 regular rate and rhythm. Respiratory: Clear to auscultation no wheezes or crackles. Abdomen: Soft nontender no liver or spleen enlargement appreciable hernias. Extremities: Positive femoral pulses full range of motion. Neurologic: Good historian. Cranial nerves are intact balance gait and station are normal stroke scale is normal Objective Labs Result Diagrams: 03/27/20 19:47 03/27/20 19:47 Labs: Laboratory Results - last 24 hr 03/27/20 03/27/20 03/27/20 19:47 19:47 19:47 WBC 10.1 RBC 4.86 Hgb 15.8 Hct 45.4 MCV 93.3 MCH 32.4 MCHC 34.8 RDW 13.2 Plt Count 233 Neut % (Auto) 78.0 H Lymph % (Auto) 13.5 L [place] % (Auto) 7.6 Eos % (Auto) 0.7 L Baso % (Auto) 0.2 Neut # (Auto) 7800 H Lymph # (Auto) 1400 [place] # (Auto) 800 Eos # (Auto) 100 Baso # (Auto) 0 PT 12.6 INR 1.1 APTT 31 Sodium 138 Potassium 4.2 Chloride 103 Carbon Dioxide 31 BUN 16 Creatinine 0.95 Estimated GFR > 60.0 BUN/Creatinine Ratio 16.8 Glucose 106 Calcium 9.7 Total Creatine Kinase 88 CK-MB (CK-2) TNP CK-MB (CK-2) Rel Index TNP Troponin I < 0.012 Urine Color Urine Appearance Urine pH Ur Specific [place] Urine Protein Urine Glucose (UA) Urine Ketones Urine Occult Blood Urine Nitrate Urine Bilirubin Urine Urobilinogen Ur Leukocyte Esterase Urine RBC Urine WBC Urine Bacteria Ur Culture Indicated? Micro UA Comment U Opiates 300ng/mL cut Ur Oxycodone Screen Urine Methadone Screen Ur Barbiturates Screen U Tricyclic Antidepress Ur Phencyclidine Scrn Ur Amphetamines Screen U Methamphetamines Scrn Ur MDMA Scrn (Ecstasy) U Benzodiazepines Scrn Urine Cocaine Screen U Marijuana (THC) Screen COVID-19 PCR 03/27/20 03/27/20 03/27/20 20:32 20:32 22:30 WBC RBC Hgb Hct MCV MCH MCHC RDW Plt Count Neut % (Auto) Lymph % (Auto) [place] % (Auto) Eos % (Auto) Baso % (Auto) Neut # (Auto) Lymph # (Auto) [place] # (Auto) Eos # (Auto) Baso # (Auto) PT INR APTT Sodium Potassium Chloride Carbon Dioxide BUN Creatinine Estimated GFR BUN/Creatinine Ratio Glucose Calcium Total Creatine Kinase CK-MB (CK-2) CK-MB (CK-2) Rel Index Troponin I Urine Color Yellow Urine Appearance Clear Urine pH 7.5 Ur Specific [place] 1.010 Urine Protein Negative Urine Glucose (UA) Negative Urine Ketones Negative Urine Occult Blood Negative Urine Nitrate Negative Urine Bilirubin Negative Urine Urobilinogen 0.2 Ur Leukocyte Esterase Negative Urine RBC None seen Urine WBC None seen Urine Bacteria None seen Ur Culture Indicated? Cult not indicated Micro UA Comment Microscopic normal U Opiates 300ng/mL cut Negative Ur Oxycodone Screen Negative Urine Methadone Screen Negative Ur Barbiturates Screen Negative U Tricyclic Antidepress Negative Ur Phencyclidine Scrn Negative Ur Amphetamines Screen Negative U Methamphetamines Scrn Negative Ur MDMA Scrn (Ecstasy) Negative U Benzodiazepines Scrn Negative Urine Cocaine Screen Negative U Marijuana (THC) Screen Negative COVID-19 PCR Negative Assessment & Plan Assessment & Plan narrative: intermittent vertigo. Patient's differential diagnosis is quite large with intermittent episodes of dizziness and vertigo. His NIH stroke scale is normal. CT and CT angiograms are fairly unremarkable. Cannot disc fluid underlying transit ischemic activity. Due to his elevated blood pressure. Obtain MRI of his brain today stroke protocol. If there is no signs of a skewed ischemia or injury to the brain and artery stenosis which is unlikely based on his CT scan. I think we can rule out a cerebrovascular accident. His symptoms possibly could be a TIA I think more likely they may be inter ear related and benign positional vertigo. Patient will undergo further workup and evaluation due to his a slow heart rate and high blood pressure an echocardiogram will be prudent. Will go ahead and obtain that to rule out any significant valvular abnormalities or enlargement of his atrial which could cause embolic sources of his stroke. He is certainly not having any bleeding. His current management plan will be to increase his aspirin from 81 mg to full- strength aspirin. He will be continued on atorvastatin. Will place him on lisinopril blood pressure for his blood pressure which is elevated. Which I think is transient related to what is going on. His MRI and echocardiogram were normal will go ahead and discharge home on lisinopril Lipitor and aspirin and have him follow-up with his regular doctor here in 1 week Quality VTE Deep Vein Thrombosis/Pulmonary Embolism Present on Admission: No
[2020-03-28 08:00] VITALS: BP 129/70; PULSE 53; RESP 16; TEMP 36.8; O2SAT 98
[2020-03-28] MEDS: lisinopriL 5 MG TABLET PO (09:15)
[2020-03-28] MEDS: ASPIRIN 325 MG TABLET PO (09:15)
[2020-03-28] MEDS: ATORVASTATIN 20 MG TABLET 40 MG PO (09:15)
--- NOTE | 2020-03-28 10:30 | CM.DANOTE ---
DCP: Case received, EMR reviewed and met with patient. , Rubina, also present in room. Introduced self and role. Was able to obtain information from patient regarding his baseline activity level and health information. DCP assessment completed with information currently available. Patient is a 70 year old male who admitted yesterday evening to the care of the hospitalist team. PCP: Dr. Schwartz. Payer: confirmed: Medicare/[facility]. Patient came to the hospital via private vehicle secondary to having some dizziness. He was also having some nausea related to the dizziness. He is being worked up to rule out CVA or cardiac issues. He has had MRI already, and is to be having an echo today as well. Met with patient and in the room. Pleasant. 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 He resides here in [place] with his spouse, Rubina. P: Patient has discharge orders. He will have echo first, and should be able to go home after, as long as test is stable. Linda Blackwell RN/[employer]
--- NOTE | 2020-03-28 12:48 | PT.IIE ---
Surgical History (Last Reviewed 03/28/20 @ 06:59 by Jm Phillips MD) History of tonsillectomy (Chronic) Medical History (Last Reviewed 03/28/20 @ 06:59 by Jm Phillips MD) Chickenpox (Resolved 1957) Colon polyps (Resolved 2011) Essential tremor (Chronic 11/13/16) Hyperlipemia (Chronic Unknown) Hypertension (Chronic Unknown) Measles (Resolved 1957) Mumps (Resolved 1957) Shoulder pain (Resolved 2012) Physical Therapy Inpatient Evaluation/Re-Eval M1 PT/OT-IP Prior Functional Status Start: 03/28/20 09:05 Freq: NEEDED Status: Active Protocol: Document 03/28/20 12:32 AW (Rec: 03/28/20 12:47 AW [id number]) Medical Review Prior Functional Status Medical History Reviewed Yes Communication WNL. Pt is an effective verbal communicator. Mobility and Gait Pt is active and indpendent. He plays pickleball several times per week and walks on days when he doesn't play. Activities of Daily Living and IADL's IND Social History Household Members spouse Living Arrangements House Number of Floors (Floors) Two Floors Number of Stairs To Enter/Railing? 5 ALE with right rail ascending. 6+7 steps to upper level. 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 He currently works 3-4 days per week. M2 PT-IP Current Condition Start: 03/28/20 09:05 Freq: NEEDED Status: Active Protocol: Document 03/28/20 12:32 AW (Rec: 03/28/20 12:47 AW [id number]) Physical Therapy Current Condition Current Condition Evaluation Date 03/28/20 Treatment Diagnosis dizziness, impaired balance, difficulty in walking Onset Date 03/27/20 M3 PT-IP Subjective Start: 03/28/20 09:05 Freq: NEEDED Status: Active Protocol: Document 03/28/20 12:32 AW (Rec: 03/28/20 12:47 AW [id number]) Subjective Physical Therapy Visit Type Type Initial Evaluation Visit Start Time 09:39 Visit Stop Time 10:10 Total Visit Minutes 31 Notes Pt's attended full session Physical Therapy Visit Comments Patient Comments I feel more like myself today . Therapy Pain Assessment Pain When Pain Assessed During Mobility Pain Present Pain Present Denied Pain M4 PT-IP Mobility and Gait Start: 03/28/20 09:05 Freq: NEEDED Status: Active Protocol: Document 03/28/20 12:32 AW (Rec: 03/28/20 12:47 AW [id number]) PT-Transfer Assessment Sit to and From Stand Sit to and from Stand Independent Equipment Transfer Assistive Device None Transfers Transfer Destination Chair Transfer Technique pt ambulated IND Transfer Ability Level of Assist Independent Comments Mobility Comments Pt moved independently without need for assist or AD. Gait Assessment Gait Gait Assistance Required: Independent Distance (Feet) 200 Assistive Devices Assistive Device None Gait Deviations General Gait Pattern Within Normal Limits Comments Gait Comments Pt completed 4-item Dynamic Gait Index with score of 08/07 . He turned easily and quickly without apparent LOB. He reported only mild dizziness following gait with horizontal head turns but symptoms quickly resolved and had no effect on gait speed or path. PT-Balance Assessment Sitting Balance and Reactions Static Sitting Balance Ability Normal Dynamic Sitting Balance Ability Normal Standing Balance and Reactions Static Standing Balance Ability Normal Dynamic Standing Balance Ability Normal Comments Other Balance Tests/Deviations/Treatment NBOS with EO and EC normal (30 : seconds) Functional Assessments Other Functional Tests Performed 4-item DGI: 08/07 M5 PT-IP Objective Assessments Start: 03/28/20 09:05 Freq: NEEDED Status: Active Protocol: Document 03/28/20 12:32 AW (Rec: 03/28/20 12:47 AW [id number]) Orientation Orientation/Cognition Level of Alertness Alert Orientation Name,Date,Day of Week,Place, Situation Language Function Ability No Deficits Noted Safety Awareness Understands Safety Issues Memory Description No Deficits Noted Gross Range of Motion Upper Extremity ROM Assessment Within Functional Limits Lower Extremity ROM Assessment Within Functional Limits Strength Upper Extremity Strength Assessment Within Functional Limits Lower Extremity Strength Assessment Within Functional Limits Coordination Assessment Gross Coordination Gross Coordination WNL Assessment Finger to Nose Test Normal Performance Pronation/Supination Test Normal Performance Sensation Assessment Sensation Gross Sensation WNL Muscle Tone Muscle Tone WNL Yes Other Assessments Other Other Assessments Occulomotor exam was grossly normal with good tracking, convergence, and divergence. No resting or gaze-evoked nystagmus. Pt did exhibit mild delay with head thrust for assessment of vestibulo- occular reflex. M6 PT-IP Treatment Start: 03/28/20 09:05 Freq: NEEDED Status: Active Protocol: Document 03/28/20 12:32 AW (Rec: 03/28/20 12:47 AW [id number]) Physical Therapy Treatment Education Education Provided Safety Other Treatments Other Treatment Performed Provided education on potential for vestibular hypofunction, possible impairment of VOR, and balance systems integration. This PT gave pt printout of gaze stabilization exercises to perform at home. M7 PT-IP Assessment and Plan Start: 03/28/20 09:05 Freq: NEEDED Status: Active Protocol: Document 03/28/20 12:32 AW (Rec: 03/28/20 12:47 AW [id number]) PT Summary Assessment and Plan Potential Rehabilitation Potential Excellent Status of Condition at Evaluation Stable Summary Impairments Gait Assessment Summary Jhonny is an active 70 yo man seen for PT evaluation after two episodes of dizziness and unsteadiness yesterday. Pt has been clear of symptoms since last night. He describes symptoms lasting long than 30 minutes which makes BPPV unlikely. On exam, occulomotor function was normal. Head thrust revealed mildly delayed gaze stabilization with possible impairment of vestibulo-occular reflex. Pt was provided handout with gaze stabilization exercises and was encouraged to seek referral to a PT specializing in vestibular therapy and possibly to ENT for further workup. Pt is safe to discharge home. Frequency of Treatment Frequency Of Treatment Discharge Recommendations To Nursing Amount of Assist Needed Independent Discharge Recommendations PT Discharge Recommendations Home,Outpatient PT Other Discharge Recommendations OP PT for vestibular evaluation. Referral to ENT may be considered. Transportation Needs at Discharge Private Vehicle
--- NOTE | 2020-03-29 07:11 | P.DS_ITS ---
History of Present Illness History of Present Illness Chief complaint: Vertigo/Dizzy/Leg Weakness/High BP Narrative: 70-year-old male who is quite active with a history of hyperlipidemia and borderline high blood pressure comes in with 2 episodes of dizziness yesterday. He has never had problems with dizziness lightheadedness he does have on occasion but not consistent. He describes the dizziness more is a vertigo symptoms like he is on a boat his balance was off. His 1st episode was yesterday morning it lasted for about an hour. [place] like his balance was out of alignment. He did have any weakness in his hands or feet difficulty with speech no headaches. It resolved. Patient when out to his work. Spent morning there and then had another episode not quite as severe. He just did not feel right he felt off balance he felt a little bit nauseated this lasted for about an hour so. Checked his blood pressure which was high his who is has similar concerns recommended he come to the emergency department for evaluation. In the emergency department patient still had a little bit of dizziness somewhat stat stomach little nausea feeling still off balance. His NIH stroke scale was 0. His blood pressure was quite elevated 180s to 190 systolic his pulse was low. His EKG was unrevealing other than bradycardia. He had a CT showing no acute bleeds or masses. And CTangiogram which mild carotid artery disease less than 50% stenosis. No acute ischemia. His NIH Stroke Scale remained less than 1. Consultation with the this stroke specialist recommended further evaluation workup. On my exam this morning patient states he is doing well he is back to his normal health. Had little nausea last night a little dizziness with walking last night but that is now all resolved. 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 He has no new neurological symptoms or worsening of his neurological symptoms. His past history includes hyperlipidemia borderline high blood pressure he takes a baby aspirin a day. He exercises 3-4 days a week Discharge Providers Provider Date of admission: 03/27/20 21:35 Discharge Date: 03/28/20 Primary care physician: Maggi Schwartz MD Consults: 03/28/20 06:08 Consult to Discharge Planning Routine Comment: Consult to Occupational Therapy Evaluate & Treat Comment: Physician Instructions: Evaluate and treat Consult to Physical Therapy Evaluate & Treat Comment: Physician Instructions: Evaluate and Treat Consult to Speech Therapy Evaluate & Treat Comment: Physician Instructions: Evaluate and treat Discharge provider: Jm Phillips MD Summary Hospital Course Discharge Diagnosis: Dizziness and vertigo. Probable acute BPPV cannot this occlude underlying TIA. Hyperlipidemia Hypertension Hospital Course: 70-year-old male with a history of borderline hypertension and hyperlipidemia was admitted with acute vertigo x2. Over few hours which she has never had before. Patient had a workup in the emergency room including laboratory testing CT scans which were fairly unremarkable other than a known history of her right mild stenosis of his internal carotid artery at 50%. Jose Manuel nt had further workup and monitoring the hospital including telemetry monitoring which showed no significant irregular heart rates. Patient had an MRI stroke protocol of his brain which showed no acute cerebral injury. Patient had an echocardiogram which is pending. The time of discharge patient was eating ambulating well and back to his normal baseline status. His echocardiogram was pending. Patient was given handout for Daniella maneuver and repositioning to do at home. He had in addition to increasing his baby aspirin to a full strength aspirin he will be continued on Lipitor 40 mg a day and was started on low-dose lisinopril causes blood pressure was high in the hospital. Will follow-up with his primary care physician in 1 week Exam Vital Signs (past 8 hours): Oxygen Delivery Method Room Air Oxygen Flow Rate 0 Narrative Exam Narrative: Gen.: Alert and oriented x3 no apparent distress. HEENT: NCAT PERRLA tympanic membranes are clear nares are patent oral mucosa is moist no tonsillar hypertrophy neck is supple without lymphadenopathy no thyroid enlargement. Cardio: S1-S2 regular rate and rhythm no murmurs appreciated. Respiratory: Lungs are clear to auscultation no wheezes or crackles normal respiratory effort. Abdomen: Soft nontender no rebound or guarding no liver spleen enlargement no appreciable hernias Extremities: Full range of motion no appreciable weakness no cyanosis or edema. Neurologic: Grossly intact. Objective Labs Result Diagrams: 03/27/20 19:47 03/27/20 19:47 Discharge Plan Discharge Plan Discharge Problem: Transient cerebral ischemia Patient Disposition: Home Discharge orders & Medications Prescriptions: New aspirin 81 mg Tablet,Delayed Release (Dr/Ec) 325 mg PO DAILY Qty: 30 RF: 0 lisinopril 5 mg Tablet 5 mg PO DAILY Qty: 30 RF: 0 Continued atorvastatin 20 mg tablet 40 mg PO DAILY RF: 0 Discontinued ASPIRIN (#ASPIRIN LOW STRENGTH ADULT) 81 mg PO Q DAY Qty: 0 RF: 0 Follow up/Referrals: Maggi Schwartz MD [Primary Care Provider] - Visit Report/Discharge Packet Instructions: DI for Transient Ischemic Attack, DI for Benign Paroxysmal Positional Vertigo, Lisinopril, How to Perform Daniella Maneuver Visit Report Forms: Patient Portal/API, Stroke Signs & Symptoms Discharge Data Primary Care Provider: Maggi Schwartz Attending Provider: Jm Phillips Admit Date/Time: 03/27/20 21:35 Discharges patient from system. Discharge Date/Time: 03/28/20 12:30 Quality VTE Deep Vein Thrombosis/Pulmonary Embolism Present on Admission: No
== END 2020-03-28 12:30 | disposition home or self-care (01) ==
LOC: ED 21:21 → AC 21:35
PROVIDERS: Admitting Provider Family Medicine; Emergency Provider Emergency Medicine; PCP Family Medicine; Referring Provider Emergency Medicine; Visit Provider Family Medicine
DX: R42 Dizziness and giddiness (principal); I10 Essential (primary) hypertension; E78.5 Hyperlipidemia, unspecified; Z79.82 Long term (current) use of aspirin; Z11.59 Encounter for screening for other viral diseases
CPT/HCPCS: 36415; 70450; 70496; 70498; 70548; 70553; 80048; 80305; 81001; 82550; 82962; 84484; 85025; 85610; 85730; 87635; 93005; 93306; 96360; 96361; 97161; 99285; G0378; Q9967

== ENCOUNTER → 2020-05-27 13:59 | Outpatient (CLI) | payer MEDICARE, OTHER, SELFPAY ==
[2020-03-27 21:39] VITALS: BMI 22.4
--- NOTE | 2020-05-27 | DI.US.S_ITS ---
PROCEDURE: US CAROTID DOPPLER BI INDICATIONS: DIZZINESS TECHNIQUE: Color and pulse Doppler interrogation was performed of both carotid systems, with image documentation and velocity measurements. COMPARISON: [facility], MR, MR STROKE, 03/28/2020, 7:50. [facility], CT, CT ANGIO HEAD AND NECK, 03/27/2020, 19:52. [facility], US, US CAROTID DOPPLER BI, 02/13/2019, 10:44. FINDINGS: Right side: Brachial blood pressure: 130/77 mm Hg. Common carotid artery peak systolic velocity: 74 cm/sec (prior 85 cm/s). Internal carotid artery peak systolic velocity: 99 cm/sec (prior 99 cm/s). Internal carotid artery end diastolic velocity: 27 cm/sec (prior 31 cm/s). External carotid artery peak systolic velocity: 101 cm/sec (prior wanted a cm/s). ICA/CCA peak systolic ratio: 1.3 (prior 1.2). Paiz scale imaging description: Moderate atherosclerotic changes are seen. Percent internal carotid artery stenosis: Less than 50% by velocity criteria. Vertebral artery: Flow direction is antegrade. Left side: Brachial blood pressure: 118/76 mm Hg. Common carotid artery peak systolic velocity: 99 cm/sec (prior 83 cm/s). Internal carotid artery peak systolic velocity: 131 cm/sec (prior 100 cm/s). Internal carotid artery end diastolic velocity: 39 cm/sec (prior 41 cm/s). External carotid artery peak systolic velocity: 119 cm/sec (prior 83 cm/s). ICA/CCA peak systolic ratio: 1.3 (prior 1.2). Paiz scale imaging description: Atherosclerotic changes can be seen. Percent internal carotid artery stenosis: 50-69% by velocity criteria Vertebral artery: Flow direction is antegrade. IMPRESSION: By velocity criteria, there is a moderate stenosis (between 50 and 69% stenosis) within the left proximal internal carotid artery. The true degree of stenosis is felt most likely to be at the lower end of this range. Dictated by: Joaquim Gray M.D. on 05/27/2020 at 14:11 Approved by: Joaquim Gray M.D. on 05/27/2020 at 14:14
== END ==
PROVIDERS: PCP Family Medicine; Referring Provider Family Medicine; Visit Provider Family Medicine
DX: I65.22 Occlusion and stenosis of left carotid artery (principal); R42 Dizziness and giddiness
CPT/HCPCS: 93880

== ENCOUNTER → 2020-07-06 17:29 | Outpatient (CLI) | payer MEDICARE, OTHER, SELFPAY ==
[2020-03-27 21:39] VITALS: BMI 22.4
--- NOTE | 2020-07-06 | DI.US.S_ITS ---
PROCEDURE: US THYROID INDICATIONS: THYROID NODULE TECHNIQUE: Real-time scanning was performed of the thyroid gland, with image documentation. COMPARISON: [facility], US, US THYROID, 02/13/2019, 10:28. FINDINGS: Right: Thyroid lobe measures 5.1 x 1.9 x 1.5 cm, and is homogeneous in echotexture. Left: Thyroid lobe measures 5.0 x 1.6 x 1.6 cm, and is homogenous in echotexture. Isthmus: 3.0 mm thick. Nodule number: 1 Location: Right mid Size: Decreased at 0.5 x 0.3 x 0.4 cm. Composition: Solid Echogenicity: Heterogeneous Shape: wider than tall. Margins: Ill-defined Echogenic foci: Macrocalcification Total points: 6 ACR TI-RADS category: Moderately suspicious Nodule number: 2 Location: Right mid Size: Unchanged 0.8 x 0.4 x 0.5 cm. Composition: Cystic Echogenicity: Anechoic Shape: wider than tall. Margins: Smooth Echogenic foci: None Total points: 0 ACR TI-RADS category: Benign Nodule number: 3 Location: Right inferior Size: Unchanged 0.5 x 0.3 x 0.5 cm. Composition: Solid Echogenicity: Hypoechoic Shape: wider than tall. Margins: Smooth Echogenic foci: None Total points: 4 ACR TI-RADS category: Moderately suspicious Nodule number: 4 Location: Mid isthmus Size: Unchanged 0.8 x 0.3 x 0.7 cm. Composition: Predominantly solid Echogenicity: Hypoechoic Shape: wider than tall. Margins: Smooth Echogenic foci: None Total points: 4 ACR TI-RADS category: Moderately suspicious Nodule number: 5 Location: Left isthmus Size: Unchanged 1.4 x 0.8 x 1.0 cm. Composition: Predominantly solid Echogenicity: Hypoechoic Shape: wider than tall. Margins: Smooth Echogenic foci: Internal echogenic punctate foci Total points: 7 ACR TI-RADS category: Highly suspicious IMPRESSION: Bilateral thyroid nodules as above. Recommend sonographically directed fine-needle aspiration involving the #5 thyroid nodule. ACR TI-RADS definitions and recommendations: TI-RADS 1 (benign): 0 points. FNA not needed. TI-RADS 2 (not suspicious): 2 points. FNA not needed. TI-RADS 3 (mildly suspicious): 3 points. * FNA if 2.5 cm or larger, follow up if 1.5 cm or larger (at 1, 3, and 5 years). TI-RADS 4 (moderately suspicious): 4-6 points. * FNA if 1.5 cm or larger, follow up if 1 cm or larger (at 1, 2, 3, and 5 years). TI-RADS 5 (highly suspicious): 7 points or more. * FNA if 1 cm or larger, follow up if 0.5 cm or larger (every year for 5 years). Dictated by: Adonis Smith [facility] Interpreted: Lloyd Syed MD on 07/07/2020 at 16:20 Approved by: Lloyd Syed M.D. on 07/07/2020 at 16:37
== END ==
PROVIDERS: PCP Family Medicine; Referring Provider Family Medicine; Visit Provider Family Medicine
DX: E04.2 Nontoxic multinodular goiter (principal)
CPT/HCPCS: 76536

== ENCOUNTER → 2020-07-29 13:10 | Outpatient (CLI) | payer MEDICARE, OTHER, SELFPAY ==
[2020-03-27 21:39] VITALS: BMI 22.4
--- NOTE | 2020-07-29 | DI.US.S_ITS ---
PROCEDURE: US FINE NEEDLE ASPIRATION INDICATIONS: NODULE TECHNIQUE: The indications, alternatives, benefits, risks, and complications of the procedure were explained to the patient. Written informed consent was obtained and placed in the chart. Real-time sonography was utilized to choose the site for percutaneous lymph node sampling. The skin was prepped and draped in the usual sterile fashion. 1% lidocaine was infiltrated down to the site of interest. Serial hypodermic needles were then advanced into the site of interest under direct sonographic visualization, and serial needle aspirates were obtained. The needles were then withdrawn; a bandage was applied to the procedure site. COMPARISON: [facility], , US THYROID, 07/06/2020, 17:48. FINDINGS: Sample site(s): Ventral left paramedian previously identified nodule. Needle: 22 gauge cytology aspiration needles, 6 total Number of passes: 6 Medications: 1% lidocaine for local anaesthesia. Complications: None. IMPRESSION: Successful ultrasound-guided ventral left paramedian isthmus lymph node fine needle aspiration, with cytology results pending. Dictated by: Manuel Peguero M.D. on 07/29/2020 at 14:05 Approved by: Manuel Peguero M.D. on 07/29/2020 at 14:06
== END ==
PROVIDERS: PCP Family Medicine; Referring Provider Family Medicine; Visit Provider Family Medicine
DX: E04.1 Nontoxic single thyroid nodule (principal)
CPT/HCPCS: 10005

== ENCOUNTER → 2020-09-17 09:44 | Outpatient (CLI) | payer MEDICARE, OTHER, SELFPAY ==
[2020-03-27 21:39] VITALS: BMI 22.4
[2020-09-17] MEDS: COVID-19 VACC #1, MRNA(MOD) 100 MCG/0.5 ML VIAL IM (09:49)
== END ==
PROVIDERS: PCP Family Medicine; Visit Provider Internal Medicine
DX: Z23 Encounter for immunization (principal)
CPT/HCPCS: 0011A; 91301

== ENCOUNTER → 2020-10-15 09:42 | Outpatient (CLI) | payer MEDICARE, OTHER, SELFPAY ==
[2020-03-27 21:39] VITALS: BMI 22.4
[2020-10-15] MEDS: COVID-19 VACC #2, MRNA(MOD) 100 MCG/0.5 ML VIAL IM (09:46)
== END ==
PROVIDERS: PCP Family Medicine; Visit Provider Internal Medicine
DX: Z23 Encounter for immunization (principal)
CPT/HCPCS: 0012A; 91301

== ENCOUNTER → 2021-06-22 08:40 | Outpatient (CLI) | payer MEDICARE, OTHER, SELFPAY ==
[2020-03-27 21:39] VITALS: BMI 22.4
[2021-06-24 11:00] LABS: Cholesterol, Total 141 mg/dL (100-199); HDL-Cholesterol 64 mg/dL (>39); HDL-Particle (Total) 33.2 umol/L (>=30.5); LDL Particle 802 nmol/L (<1000); LDL Size 20.6 nm (>20.5); LDL-Cholsterol 63 mg/dL (0-99); LP-IR Score 25 (<=45); Small LDL- Particle 288 nmol/L (<=527); Triglycerides 71 mg/dL (0-149)
== END ==
PROVIDERS: PCP Family Medicine; Referring Provider Physician Assistant Medical; Visit Provider Specialist
DX: E78.00 Pure hypercholesterolemia, unspecified (principal)
CPT/HCPCS: 36415; 80061; 83704

== ENCOUNTER → 2021-07-08 14:53 | Outpatient (CLI) | payer MEDICARE, OTHER, SELFPAY ==
[2020-03-27 21:39] VITALS: BMI 22.4
[2021-07-08] MEDS: COVID-19 VACC #3, MRNA(MOD) 50 MCG/0.25 ML VIAL IM (14:57)
== END ==
PROVIDERS: PCP Family Medicine; Visit Provider Internal Medicine
DX: Z23 Encounter for immunization (principal)
CPT/HCPCS: 0013A; 91301

== ENCOUNTER → 2021-08-03 14:56 | Outpatient (CLI) | payer MEDICARE, OTHER, SELFPAY ==
[2020-03-27 21:39] VITALS: BMI 22.4
[2021-08-03 16:11] LABS: COVID19 -Nasal RAPID Negative (Negative)
== END ==
PROVIDERS: PCP Family Medicine; Referring Provider Surgery; Visit Provider Surgery
DX: Z01.812 Encounter for preprocedural laboratory examination (principal); Z20.822 Contact with and (suspected) exposure to COVID-19
CPT/HCPCS: 87635; C9803

== ENCOUNTER 2021-08-04 11:53 | Day surgery (SDC) | payer MEDICARE, OTHER, SELFPAY ==
[2020-03-27 21:39] VITALS: BMI 22.4
[2021-08-04] VITALS (8 sets, daily range): BP systolic 96–124; BP diastolic 52–74; PULSE 53–68; RESP 11–18; TEMP 36.3–36.7; O2SAT 96–99; BMI 22.4
[2021-08-04] MEDS: LACTATED RINGERS 1,000 ML 84 ML IV (12:46)
--- NOTE | 2021-08-04 13:14 | PM.HP.1 ---
History of Present Illness History of Present Illness Date Patient Seen: 08/04/21 Time Patient Seen: 13:14 Chief complaint: DX COLONOSCOPY Narrative: The patient presents for colorectal sreening. Previous colonoscopy 5 years ago demonstrated benign polyps. No personal or family history of colon cancer. On further history denies any recent gastrointestinal symptoms. No nausea, vomiting, abdominal pain, loss of appetite, unexplained weight loss, change in bowel habits, diarrhea, constipation, melena, hematochezia, or bright red blood per rectum. Patient History Medical History (Updated 08/04/21 @ 13:15 by Jay Gomes MD) Chickenpox (1957) Colon polyps (2011) Essential tremor (11/13/16) Hyperlipemia (Unknown) Hypertension (Unknown) Measles (1957) Mumps (1957) Shoulder pain (2012) Surgical History History of tonsillectomy Family & Social History Family History Father No problems noted. Mother No problems noted. Social History: household members spouse Tobacco & Substance use: Smoking Status Never smoker alcohol intake current alcohol intake frequency 3 or more drinks per day Substance Use Type does not use Meds Home Medications and Allergies Home Medications Medication Instructions Recorded Confirmed Type atorvastatin 20 mg tablet 40 mg PO DAILY 03/05/18 08/04/21 History aspirin 81 mg tablet,delayed 325 mg PO DAILY #30 tab 03/28/20 08/04/21 Rx release lisinopril 5 mg tablet 5 mg PO DAILY #30 tab 03/28/20 08/04/21 Rx Allergies Allergy/AdvReac Type Severity Reaction Status Date / Time Penicillins [PENICILLINS] Allergy Unknown Verified 03/27/20 19:28 Exam Vital Signs (past 8 hours): - 08/04/21 12:34 Temperature 98.1 F Pulse Rate 68 Respiratory Rate 18 Blood Pressure 124/74 Pulse Oximetry 99 Oxygen Delivery Method Room Air Narrative Exam Narrative: Constitutional-he is oriented to person, place and time. No apparent distress Cardiovascular- regular rate, no peripheral edema Pulmonary-unlabored respiratory effort, no audible wheezing Abdominal-soft, non-tender, non-distended Musculoskeletal-no cyanosis or clubbing Neurological-nonfocal, normal strength throughout, Skin-warm and dry Assessment & Plan Assessment and plan (1) Screening for colon cancer: Status: Acute Assessment & Plan narrative: The patient requires colorectal screening and colonoscopy is recommended. Technical details were discussed. Risks, benefits, alternatives explained. Risks including but not limited to myocardial infarction, aspiration, bleeding, pain, missed lesion, incomplete examination, need for further radiographic studies, colonic perforation, and need for major abdominal surgery were discussed. All questions were answered to their satisfaction, and they are in agreement with this plan. Time Spent With Patient Critical Care time: I spent a total of [] minutes of critical care time on this patient's care today; this time is exclusive of procedural time.
[2021-08-04] MEDS: fentaNYL 250 MCG/5 ML INJ IV (13:31)
[2021-08-04] MEDS: MIDAZOLAM 5 MG/5 ML VIAL IV (13:39)
--- NOTE | 2021-08-04 13:48 | PM.OP.COLON ---
Operative Date/Time/Diagnoses Date of procedure: 08/04/21 Time of procedure: 13:48 Pre-op diagnosis: Personal history of colonic polyps Post-op diagnosis: same Procedure & Clinicians Study performed: Colonoscopy Same procedure as scheduled: Yes Indications: Personal history of colonic polyps Surgeon: Jay Gomes Procedure Notes Procedure in detail: Medications: Conscious sedation using 8mg IV midazolam and 150mcg IV of fentanyl The history and physical was performed/updated and the patient is ASA class is 2. The procedure was discussed in detail with the patient. Potential risks complications including infection, bleeding, missed diagnosis, perforation, need for surgery, and were explained. Their questions were answered and informed consent was obtained. Patient was brought to the procedure room and placed standard monitoring equipment. The patient's vital signs were monitored continuously throughout the entire procedure. Prior to starting time-out was performed. The patient was placed in the left lateral recumbent position. Procedural sedation was administered. Examination began with a thorough inspection of the perianal area there was no evidence of fissures, fistulae, external hemorrhoids or cutaneous malignancy. The colonoscopy scope was then placed into the anal canal and was advanced to the cecum, which was identified by the ileocecal valve, the appendiceal orifice and the confluence of the taenia. The scope was then slowly withdrawn examining colon thoroughly in all directions, irrigating it of any residual stool. FINDINGS 1. No masses or polyps 2. Normal healthy colon The patient tolerated the procedure well. They will be discharged once criteria are met. The prep was of good/excellent quality. The withdrawl time was 7 minutes. The sedation time was 26 minutes. Complications: none Impression: Normal colonoscopy Post-procedure Recommendations: Colonoscopy in 10 years Disposition: same day surgery
== END 2021-08-04 14:40 | disposition home or self-care (01) ==
PROVIDERS: PCP Family Medicine; Referring Provider Surgery; Visit Provider Surgery
PROC: 0DJD8ZZ Inspection of Lower Intestinal Tract, Via Natural or Artificial Opening Endoscopic (ICD-10-PCS; CPT 45378; principal; 2021-08-04 13:00)
DX: Z12.11 Encounter for screening for malignant neoplasm of colon (principal); Z86.010 Personal history of colon polyps; I10 Essential (primary) hypertension; E78.5 Hyperlipidemia, unspecified
CPT/HCPCS: G0105; 99152; J2250; J3010

== ENCOUNTER → 2022-06-22 09:05 | Outpatient (CLI) | payer MEDICARE, OTHER, SELFPAY ==
[2020-03-27 21:39] VITALS: BMI 22.4
[2022-06-22 11:21] LABS: Alanine Aminotransferase 43 IU/L (<50); Albumin 4.3 g/dL (3.5-5.0); Albumin Globulin Ratio 1.5 (1.0-2.8); Alkaline Phosphatase 89 U/L (38-126); Aspartate Aminotransferase 37 IU/L (17-59); Bilirubin Total 2.6 mg/dL (0.2-1.3); Blood Urea Nitrogen 12 mg/dL (9-20); Calcium 9.2 mg/dL (8.4-10.2); Carbon Dioxide 28 mmol/L (22-32); Chloride 102 mmol/L (98-107); Estimated Glomerular Filt Rate > 60 mL/min (>60); Globulin 2.8 g/dL (1.7-4.1); Glucose 87 mg/dL (80-110); Potassium 4.5 mmol/L (3.4-5.1); Sodium 139 mmol/L (137-145); Total Protein 7.1 g/dL (6.3-8.2)
[2022-06-25 08:12] LABS: Cholesterol, Total 184 mg/dL (100-199); HDL-Cholesterol 64 mg/dL (>39); HDL-Particle (Total) 33.9 umol/L (>=30.5); LDL Particle 1027 nmol/L (<1000); LDL Size 21.1 nm (>20.5); LDL-Cholsterol 99 mg/dL (0-99); LP-IR Score 31 (<=45); Small LDL- Particle 326 nmol/L (<=527); Triglycerides 118 mg/dL (0-149)
[2022-06-27 17:55] LABS: HEMOLYSIS < 15 (0-50)
== END ==
PROVIDERS: Specialist; PCP Family Medicine; Referring Provider Physician Assistant Medical; Visit Provider Physician Assistant Medical
DX: E78.00 Pure hypercholesterolemia, unspecified (principal)
CPT/HCPCS: 36415; 80053; 80061; 83704

== ENCOUNTER → 2024-02-12 08:32 | Outpatient (CLI) | payer MEDICARE, OTHER, SELFPAY ==
[2020-03-27 21:39] VITALS: BMI 22.4
--- NOTE | 2024-02-12 08:34 | DI.US.S_ITS ---
PROCEDURE: US THYROID INDICATIONS: FOLLOW-UP NODULES TECHNIQUE: Real-time scanning was performed of the thyroid gland, with image documentation. COMPARISON: [facility], [place], US THYROID, 07/06/2020, 17:48. FINDINGS: Thyroid: Right lobe measures 4.7 x 2.1 x 2.0 cm. Left lobe measures 5.0 x 1.6 x 1.2 cm. Isthmus is 0.4 cm thick. Echotexture is homogeneous. Nodule number: 1 (previously nodule #5) Location: Left isthmus Size: 0.9 x 0.5 x 0.9 cm (previously 1.4 x 0.9 x 0.9 cm) Composition: Solid Echogenicity: Hypoechoic Shape: wider than tall. Margins: Smooth Echogenic foci: Macroscopic calcification Total points: 6 ACR TI-RADS category: Moderately suspicious Nodule number: 2 (previously nodule #4) Location: Right isthmus Size: 0.7 x 0.3 x 0.3 cm (previously 0.7 x 0.6 x 0.3 cm) Composition: Solid Echogenicity: Hypoechoic Shape: wider than tall. Margins: Smooth Echogenic foci: None Total points: 4 ACR TI-RADS category: Moderately suspicious Additional tiny thyroid nodules are seen bilaterally. IMPRESSION: Moderately suspicious isthmus nodules no longer meet size criteria for dedicated sonographic follow-up. ACR TI-RADS definitions and recommendations: TI-RADS 1 (benign): 0 points. FNA not needed. TI-RADS 2 (not suspicious): 2 points. FNA not needed. TI-RADS 3 (mildly suspicious): 3 points. * FNA if 2.5 cm or larger, follow up if 1.5 cm or larger (at 1, 3, and 5 years). TI-RADS 4 (moderately suspicious): 4-6 points. * FNA if 1.5 cm or larger, follow up if 1 cm or larger (at 1, 2, 3, and 5 years). TI-RADS 5 (highly suspicious): 7 points or more. * FNA if 1 cm or larger, follow up if 0.5 cm or larger (every year for 5 years). Approved by: Hu Tucker M.D. on 02/18/2024 at 16:34
--- NOTE | 2024-02-12 08:36 | DI.RAD.S_ITS ---
PROCEDURE: XR FINGER RT MIN 2V INDICATIONS: THUMB PAIN TECHNIQUE: AP hand, 2 views of the 1st finger(s) acquired. COMPARISON: None. FINDINGS: Bones: No fractures or dislocations. Moderate to severe 1st interphalangeal joint osteoarthritic changes are seen with near complete loss of joint space, extensive subchondral sclerosis and subcortical radiolucencies concerning for erosive osteoarthritis. No suspicious bony lesions. Soft tissues: No suspicious soft tissue calcifications. 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 Surrounding soft tissue swelling. No acute fracture or dislocation. Dictated by: Sumeet Ramos M.D. on 02/12/2024 at 9:46 Approved by: Sumeet Ramos M.D. on 02/12/2024 at 9:56
== END ==
PROVIDERS: PCP Family Medicine; Referring Provider Family Medicine; Visit Provider Family Medicine
DX: E04.2 Nontoxic multinodular goiter (principal); M19.041 Primary osteoarthritis, right hand; M79.644 Pain in right finger(s); M79.89 Other specified soft tissue disorders
CPT/HCPCS: 73140; 76536